=== PATIENT | female | born 1980 | race Caucasian/White ===

== ENCOUNTER 2024-12-03 23:16 | Emergency (ER) | payer OTHER ==
--- NOTE | 2024-12-03 23:50 | ER ---
Nurse's Notes [facility] Name: Erma Mejia Age: 44 yrs Sex: Female : 1980 Arrival Date: 12/03/2024 Time: 23:16 Bed IW1 Private MD: Diagnosis: Odontogenic abscess Presentation: 12/03 23:44 Chief complaint: Patient states: I have some swelling to left side of my face. bm8 Coronavirus screen: At this time, the client does not indicate any symptoms associated with coronavirus-19. Ebola Screen: Patient negative for fever greater than or equal to 101.5 degrees Fahrenheit, and additional compatible Ebola Virus Disease symptoms Patient denies exposure to infectious person. Patient denies travel to an Ebola-affected area in the 21 days before illness onset. No symptoms or risks identified at this time. Initial Sepsis Screen: Does the patient meet any 2 criteria? No. Patient's initial sepsis screen is negative. Does the patient have a suspected source of infection? No. Patient's initial sepsis screen is negative. Risk Assessment: Do you want to hurt yourself or someone else? Patient reports no desire to harm self or others. Onset of symptoms was November 28, 2024. 23:44 Method Of Arrival: Ambulatory bm8 23:44 Acuity: MYRA 4 bm8 Triage Assessment: 23:46 General: Appears in no apparent distress. uncomfortable, Behavior is calm, cooperative, bm8 appropriate for age. Pain: Complains of pain in left jaw and left cheek Pain currently is 9 out of 10 on a pain scale. EENT: Poor dentition noted. Absence of teeth noted - lower left second molar (#18), lower left first molar (#19) and lower left second bicuspid (#20). Neuro: No deficits noted. Level of Consciousness is awake, alert, obeys commands, Oriented to person, place, time, situation, Appropriate for age. Cardiovascular: Denies chest pain, Heart tones S1 S2 present. Respiratory: Airway is patent Respiratory effort is even, unlabored, Respiratory pattern is regular, symmetrical. GI: No signs and/or symptoms were reported involving the gastrointestinal system. : No signs and/or symptoms were reported regarding the genitourinary system. Derm: Abscess located on left jaw and left cheek is golf ball sized, Reports pain that is 9 out of 10 on a pain scale. Musculoskeletal: No deficits noted. No signs and/or symptoms reported regarding the musculoskeletal system. 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 - Infectious Disease History:: Denies. - Social history:: Smoking status: Patient denies any tobacco usage or history of. Screenin/07 00:06 [facility] ED Fall Risk Assessment (Adult) History of falling in the last 3 months, bm8 including since admission No falls in past 3 months (0 pts) Confusion or Disorientation No (0 pts) Intoxicated or Sedated No (0 pts) Impaired Gait No (0 pts) Mobility Assist Device Used No (0 pt) Altered Elimination No (0 pt) Score/Fall Risk Level 0 - 2 = Low Risk Oriented to surroundings, Maintained a safe environment, Educated pt \T\ family on fall prevention, incl call for assistance when getting out of bed, Assessed \T\ reinforced patient's understanding of fall precautions, Hourly rounding (assess needs \T\ fall precautionary measures) done, Used ambulatory aids as needed (educated on \T\ assisted with), Used gait belt as appropriate. Abuse screen: Denies threats or abuse. Nutritional screening: No deficits noted. Tuberculosis screening: No symptoms or risk factors identified. Assessment: 00:06 Reassessment: see triage note. bm8 Vital Signs: 12/03 23:44 BP 175 / 93; Pulse 69; Resp 18; Temp 98.5; Pulse Ox 100% ; Weight 86.18 kg; Height 5 bm8 ft. 4 in. ; Pain 9/10; 23:44 Body Mass Index 32.61 (86.18 kg, 162.56 cm) bm8 23:44 Pain Scale: Adult bm8 Toan Coma Score: 12/04 00:06 Eye Response: spontaneous(4). Motor Response: obeys commands(6). Verbal Response: bm8 oriented(5). Total: 15. ED Course: 12/03 23:19 Patient arrived in ED. jj6 23:34 Owen Cotto FNP-C is PHCP. dr5 23:34 Hector Partida MD is Attending Physician. dr5 23:46 Triage completed. bm8 23:46 Arm band placed on right wrist. bm8 12/04 00:06 Patient has correct armband on for positive identification. Provided Education on: post bm8 er care. 00:06 No provider procedures requiring assistance completed. Patient did not have IV access bm8 during this emergency room visit. Administered Medications: 00:06 Drug: Ketorolac IM 30 mg IM once Route: IM; Site: right deltoid; bm8 00:08 Follow up: Response: No adverse reaction bm8 00:06 Drug: Amoxicillin-Clavulanate PO 875 mg PO once Route: PO; bm8 00:08 Follow up: Response: No adverse reaction bm8 Medication: 00:06 VIS not applicable for this client. bm8 Outcome: 12/03 23:49 Discharge ordered by . rt 12/04 00:06 Discharged to home ambulatory, with family, bm8 Condition: stable Discharge instructions given to patient, family, Instructed on discharge instructions, follow up and referral plans. safety practices, Demonstrated understanding of instructions, follow-up care, medications, Prescriptions given X 2, 00:08 Patient left the ED. bm8 Signatures: Radha Quinteros [email or web address] Hector Partida MD MD rt John Bradley RN RN bm8 Owen Cotto FNP-C FNP-Cdr5 Corrections: (The following items were deleted from the chart) 12/03 23:46 23:46 PMHx: None; bm8 bm8 23:46 23:46 PSHx: Unable to Obtain; bm8 bm8 12/04 00:08 00:06 Discharge instructions given to patient, family, Instructed on discharge bm8 instructions, follow up and referral plans. safety practices, Demonstrated understanding of instructions, follow-up care, medications, Prescriptions given X 1, bm8
--- NOTE | 2024-12-03 23:50 | EDPHYS ---
Physician Documentation [facility] Name: Erma Mejia Age: 44 yrs Sex: Female : 1980 Arrival Date: 12/03/2024 Time: 23:16 Bed IW1 Private MD: ED Physician Hector Partida HPI: 12/04 01:41 This 44 yrs old Female presents to ER via Ambulatory with complaints of Abscess. rt 01:41 Patient presents to the ED with reported dental abscess to the left lower jaw. Has been rt present for about a week. Has been unable to get in with a dentist. States that symptoms have worsened today. Denies other acute complaints at this time, symptoms are mild severity, no other aggravating elevating factors.. 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 - Infectious Disease History:: Denies. - Social history:: Smoking status: Patient denies any tobacco usage or history of. ROS: 12/04 01:41 Constitutional: Negative for fever, chills, and weight loss, Cardiovascular: Negative rt for chest pain, palpitations, and edema, Respiratory: Negative for shortness of breath, cough, wheezing, and pleuritic chest pain, Abdomen/GI: Negative for abdominal pain, nausea, vomiting, diarrhea, and constipation, ENT: Positive for Dental pain, abscess, Exam: 01:41 Constitutional: This is a well developed, well nourished patient who is awake, alert, rt and in no acute distress. Head/Face: Normocephalic, atraumatic. Chest/axilla: Normal chest wall appearance and motion. Nontender with no deformity. No lesions are appreciated. Cardiovascular: Regular rate and rhythm with a normal S1 and S2. No gallops, murmurs, or rubs. Normal PMI, no JVD. No pulse deficits. Respiratory: Lungs have equal breath sounds bilaterally, clear to auscultation and percussion. No rales, rhonchi or wheezes noted. No increased work of breathing, no retractions or nasal flaring. Abdomen/GI: Soft, non-tender, with normal bowel sounds. No distension or tympany. No guarding or rebound. No evidence of tenderness throughout. 01:41 ENT: Multiple dental caries noted, swelling noted to the left lower mandibular region consistent with abscess versus lymphadenopathy, no head amenable to drainage. Vital Signs: 12/03 23:44 BP 175 / 93; Pulse 69; Resp 18; Temp 98.5; Pulse Ox 100% ; Weight 86.18 kg; Height 5 bm8 ft. 4 in. ; Pain 9/10; 23:44 Body Mass Index 32.61 (86.18 kg, 162.56 cm) bm8 23:44 Pain Scale: Adult bm8 Toan Coma Score: 12/04 00:06 Eye Response: spontaneous(4). Motor Response: obeys commands(6). Verbal Response: bm8 oriented(5). Total: 15. MDM: 12/03 23:38 Medical Screening Exam initiated dr5 12/04 01:41 Differential diagnosis: Dental caries, dental abscess. Data reviewed: vital signs, rt nurses notes. Test considered but Not performed: Other Details Stable vital signs save for hypertension. Patient has swelling, lymphadenopathy versus abscess. It is not amenable to primary drainage in the emergency department. CT scan was considered, however, CT scan is not available at this time at this facility and do not believe that is emergently indicated, will start trial of outpatient antibiotics, return precautions were discussed as well as outpatient follow-up with dentist.. Counseling: I had a detailed discussion with the patient and/or guardian regarding the historical points, exam findings, and any diagnostic results supporting the discharge/admit diagnosis, the need for outpatient follow up. Response to treatment: the patient's symptoms have mildly improved after treatment. Administered Medications: 00:06 Drug: Ketorolac IM 30 mg IM once Route: IM; Site: right deltoid; bm8 00:08 Follow up: Response: No adverse reaction bm8 00:06 Drug: Amoxicillin-Clavulanate PO 875 mg PO once Route: PO; bm8 00:08 Follow up: Response: No adverse reaction bm8 Disposition Summary: 12/03/24 23:49 Discharge Ordered Notes: Location: Home rt Problem: new rt Symptoms: are unchanged rt Condition: Stable rt Diagnosis - Odontogenic abscess rt Followup: rt - With: Private Physician - When: 2 - 3 days - Reason: Discharge Instructions: - Discharge Summary Sheet rt - Dental Abscess rt Forms: - Medication Reconciliation Form rt - Antibiotic Education rt - Prescription Opioid Use rt - Patient Portal Instructions rt - Leadership Thank You Letter rt Prescriptions: - Augmentin 875-125 mg Oral Tablet - take 1 tablet ORAL route every 12 hours for 10 days; 20 tablet; Refills: 0, rt Product Selection Permitted - Tramadol 50 mg Oral Tablet - take 1 tablet ORAL route every 8 hours as needed; 12 tablet; Refills: 0, rt Product Selection Permitted Signatures: Hector Partida MD MD rt John Bradley, RN RN bm8 Owen Cotto, DIABETES TRAINER-C DIABETES TRAINER-Cdr5 Corrections: (The following items were deleted from the chart) 12/03 23:46 23:46 PMHx: None; bm8 bm8 23:46 23:46 PSHx: Unable to Obtain; bm8 bm8
[2024-12-04] MEDS ORDERED: AMOX/K CLAV 875 MG TAB ONE
[2024-12-04] MEDS ORDERED: KETOROLAC 30 MG/ML INJ ONE
[2024-12-04 00:26] VITALS: BP 175/93; TEMP 98.5; O2SAT 100
== END 2024-12-04 00:08 | disposition home or self-care (01) ==
LOC: ER 23:16
DX: K04.7 Periapical abscess without sinus (principal)
CPT/HCPCS: 96372; 99284

== ENCOUNTER 2024-12-06 00:30 | Emergency (ER) | payer OTHER ==
[2024-12-06] MEDS ORDERED: CEFTRIAXONE 1000 MG/VIAL ONE (01:20)
[2024-12-06] MEDS ORDERED: HYDROCODONE/APAP 5/325 MG TAB ONE (01:21)
[2024-12-06] MEDS ORDERED: ONDANSETRON 4 MG/2 ML VIAL ONE (01:21)
[2024-12-06] MEDS ORDERED: NA CHLORIDE 0.9% 1,000 ML ONE (01:21)
[2024-12-06] MEDS ORDERED: KETOROLAC 30 MG/ML INJ ONE (01:21)
[2024-12-06 02:03] LABS: Absolute Eosinophils 0.1 K/uL (0-0.5); Absolute Lymphocytes (CBC) 2.6 K/uL (0.7-4.9); Absolute Monocytes 0.6 K/uL (0.1-1.3); Absolute Neutrophil 8.9 K/uL (1.8-8.0); Basophils % 0.3 % (0-1.3); Eosinophils % 1.2 % (0-4.4); Hematocrit 39.5 % (36.0-45.0); Hemoglobin 13.3 g/dL (12.0-15.0); Lymphocytes % 21.4 % (15.3-44.8); MCH 28.7 pg (27.0-35.0); MCHC 33.5 g/dL (32.0-36.0); MCV 85.6 fL (80-100); MPV 6.9 fL (7.6-11.3); Monocytes % 5.2 % (3.3-12.3); Neutrophils % 71.9 % (41.7-73.7); Platelets 447 thou/uL (152-406); RBC Red Blood Cell Count 4.62 M/uL (3.86-4.86)
[2024-12-06 02:14] LABS: Albumin 3.4 g/dL (3.4-5.0); Anion Gap 9.2 mEq/L (5.0-15.0); Bilirubin Total 0.2 mg/dL (0.2-1.0); Globulin 3.5 g/dL (2.3-3.5); Potassium 3.2 mEq/L (3.5-5.1); Protein, Total 6.9 g/dL (6.4-8.2)
[2024-12-06] MEDS ORDERED: SMZ./TMP. 800/160 MG TABLET ONE (03:31)
[2024-12-06] MEDS ORDERED: LIDOCAINE 1% 20 ML MDV ONE (03:31)
--- NOTE | 2024-12-06 03:48 | RAD REPORT ---
EXAM: CT Neck With Intravenous Contrast CLINICAL HISTORY: left mandibular abscess TECHNIQUE: Axial computed tomography images of the neck with intravenous contrast. Sagittal and coronal reform atted images were created and reviewed. This CT exam was performed using one or more of the following dose reduction techniques: automated exposure control, adjustment of the mA and/or kV acc ording to patient size, and/or use of iterative reconstruction technique. COMPARISON: No relevant prior studies available. FINDINGS: Oropharynx: Unremarkable. No significant tonsillar enlargement. No peritonsillar abscess. Hypopharynx: Unremarkable. Larynx: Unremarkable. Normal epiglottis. Trachea: Unremarkable. Retropharyngeal space: Unremarkable. Submandibular/parotid glands: Unremarkable. Glands are normal in size. Thyroid: Unremarkable. No enlarged or calcified nodules. Bones/joints: No acute fracture. Soft tissues: Left perimandibular soft tissue swelling and mild platysmal thickening. There is a pe ripherally enhancing collection within the left perimandibular soft tissues measuring approximately 1.4 cm with a tract extending to the mandible at the level of the second premolar tooth. Vasculature: No acute findings. Lymph nodes: Unremarkable. No lymphadenopathy. Sinuses: Near-complete opacification of the bilateral maxillary sinuses. Dental: Scattered dental caries. Prominent periapical lucency with disruption of the buccal cortex at the level of the left mandibular second premolar tooth. Lung apices: Bilateral upper lobe groundglass opacities. IMPRESSION: 1. Left perimandibular soft tissue abscess measuring approximately 1.4 cm with a tract extending to the mandible at the level of the second premolar tooth. 2. Bilateral upper lobe groundglass opacities (atelectasis and/or infiltrate). 3. Other findings as above. Electronically signed by: Rachelle Lamb MD 12/06/2024 02:52 AM [facility] Due to temporary technical issues with the PACS/Z Plane reporting system, reports are being mahesh d by the in-house radiologist without review as a courtesy to ensure prompt reporting the interpreting radiologist is fully responsible for the content of the report. Transcribed Date/Time: 12/06/2024 3:47 AM
--- NOTE | 2024-12-06 04:21 | EDPHYS ---
Physician Documentation [facility] Name: Erma Mejia Age: 44 yrs Sex: Female : 1980 Arrival Date: 12/06/2024 Time: 00:30 Bed 6 Private MD: ED Physician Thien Goodson HPI: 12/06 00:42 This 44 yrs old Female presents to ER via Unassigned with complaints of sp4 Abscess Recheck, Facial Swelling. 12/07 00:58 Patient presents with worsening left lower facial swelling associated with forming sp4 abscess just left submandibular area.. 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 Flu vaccine is not up to date. Patient has never been vaccinated. - Infectious Disease History:: Denies. - Social history:: Smoking status: Patient/guardian denies using tobacco, but has a distant history of tobacco abuse. - Family history:: not pertinent. ROS: 12/07 00:58 Constitutional: Negative for fever, chills, and weight loss, positive left lower sp4 submandibular abscess abscess All other systems are negative, Exam: 00:58 Constitutional: This is a well developed, well nourished patient who is awake, alert, sp4 and in no acute distress. Head/Face: Normocephalic, atraumatic. Patient has left lower facial swelling associated with induration and purulence with forming pus had left submandibular area Eyes: Pupils equal round and reactive to light, extra-ocular motions intact. Lids and lashes normal. Conjunctiva and sclera are not injected. Cornea within normal limits. Periorbital areas with no swelling, redness, or edema. ENT: Nares patent. No nasal discharge, no septal abnormalities noted. Tympanic membranes are normal and external auditory canals are clear. Oropharynx with no redness, swelling, or masses, exudates, or evidence of obstruction, uvula midline. Mucous membranes moist. Neck: Trachea midline, no thyromegaly or masses palpated, and no cervical lymphadenopathy. Supple, full range of motion without nuchal rigidity, or vertebral point tenderness. Chest/axilla: Normal chest wall appearance and motion. Nontender with no deformity. No lesions are appreciated. Cardiovascular: Regular rate and rhythm with a normal S1 and S2. No gallops, murmurs, or rubs. Normal PMI, no JVD. No pulse deficits. Respiratory: Lungs have equal breath sounds bilaterally, clear to auscultation and percussion. No rales, rhonchi or wheezes noted. No increased work of breathing, no retractions or nasal flaring. Abdomen/GI: Soft, with normal bowel sounds. No distension or tympany. No guarding or rebound. No evidence of tenderness throughout. Back: No spinal tenderness. No costovertebral tenderness. Skin: Warm, dry with normal turgor. Normal color with no rashes, no lesions, and no evidence of cellulitis. MS/ Extremity: Pulses equal, no cyanosis. Neurovascular intact. Full, normal range of motion. Neuro: Awake and alert, GCS 15, oriented to person, place, time, and situation. Cranial nerves II-XII grossly intact. Motor strength 5/5 in all extremities. Sensory grossly intact. Psych: Awake, alert, with orientation to person, place and time. Behavior, mood, and affect are within normal limits Vital Signs: 12/06 00:35 BP 159 / 95; Pulse 84; Resp 16; Temp 97.9(TE); Pulse Ox 98% ; Weight 111.58 kg; Height dd2 5 ft. 6 in. ; Pain 6/10; 01:00 BP 152 / 93; Pulse 83; Resp 16; Pulse Ox 99% on R/A; ay 02:15 BP 149 / 88; Pulse 85; Resp 16; Pulse Ox 99% on R/A; ay 03:00 BP 152 / 87; Pulse 83; Resp 17; Pulse Ox 99% on R/A; ay 04:15 BP 146 / 85; Pulse 86; Resp 16; Temp 98.3; Pulse Ox 98% on R/A; ay 00:35 Body Mass Index 39.70 (111.58 kg, 167.64 cm) dd2 00:35 Pain Scale: Adult dd2 Burdine Coma Score: 12/07 00:58 Eye Response: spontaneous(4). Motor Response: obeys commands(6). Verbal Response: sp4 oriented(5). Total: 15. Procedures: 12/06 04:03 I \T\ D: Incision and drainage was performed for an abscess of the left neck - Left sp4 submandibular area small abscess Prepped with Betadine, alcohol, Anesthetized with 8 ml's 1% Lidocaine. Incised with #11 blade. Drained moderate amount purulent fluid. bloody fluid. Packed with iodoform gauze, Dressing: sterile 4x4 gauze, Foam Tape the patient tolerated the procedure well, Advised Daily dressing changes . MDM: 00:58 Medical Screening Exam initiated sp4 12/07 01:00 Differential diagnosis: cellulitis. Data reviewed: vital signs, nurses notes, lab test sp4 result(s), radiologic studies, CT scan. ED course: EXAM: CT Neck With Intravenous Contrast CLINICAL HISTORY: left mandibular abscess TECHNIQUE: Axial computed tomography images of the neck with intravenous contrast. Sagittal and coronal reformatted images were created and reviewed. This CT exam was performed using one or more of the following dose reduction techniques: automated exposure control, adjustment of the mA and/or kV according to patient size, and/or use of iterative reconstruction technique. COMPARISON: No relevant prior studies available. FINDINGS: Oropharynx: Unremarkable. No significant tonsillar enlargement. No peritonsillar abscess. Hypopharynx: Unremarkable. Larynx: Unremarkable. Normal epiglottis. Trachea: Unremarkable. Retropharyngeal space: Unremarkable. Submandibular/parotid glands: Unremarkable. Glands are normal in size. Thyroid: Unremarkable. No enlarged or calcified nodules. Bones/joints: No acute fracture. Soft tissues: Left perimandibular soft tissue swelling and mild platysmal thickening. There is a peripherally enhancing collection within the left perimandibular soft tissues measuring approximately 1.4 cm with a tract extending to the mandible at the level of the second premolar tooth. Vasculature: No acute findings. Lymph nodes: Unremarkable. No lymphadenopathy. Sinuses: Near-complete opacification of the bilateral maxillary sinuses. Dental: Scattered dental caries. Prominent periapical lucency with disruption of the buccal cortex at the level of the left mandibular second premolar tooth. Lung apices: Bilateral upper lobe groundglass opacities. IMPRESSION: 1. Left perimandibular soft tissue abscess measuring approximately 1.4 cm with a tract extending to the mandible at the level of the second premolar tooth. 2. Bilateral upper lobe groundglass opacities (atelectasis and/or infiltrate). 3. Other findings as above. Electronically signed by: Rachelle Lamb MD 12/06/2024 02:52 AM. 12/06 00:56 Order name: CBC with Diff; Complete Time: 02:10 sp4 12/06 00:56 Order name: CMP; Complete Time: 03:03 sp4 12/06 00:57 Order name: CT Soft Tissue Neck W/contr sp4 12/06 00:56 Order name: IV Saline Lock; Complete Time: 01:01 sp4 12/06 00:56 Order name: Labs collected and sent; Complete Time: 01:01 sp4 12/06 03:03 Order name: Dressing - Wound; Complete Time: 04:23 sp4 12/06 03:03 Order name: Gloves, Sterile; Complete Time: 03:34 sp4 12/06 03:03 Order name: Setup Suture Tray; Complete Time: 03:34 sp4 Administered Medications: 12/06 01:37 Drug: HYDROcodone-acetaminophen PO 5 mg-325 mg 2 tabs PO once Route: PO; dd2 02:07 Follow up: Response: No adverse reaction ay 01:37 Drug: Ketorolac IVP 30 mg IVP once Route: IVP; Site: left antecubital; dd2 01:52 Follow up: Response: No adverse reaction ay 01:37 Drug: Ondansetron IVP 4 mg IVP once; over 2 minutes Route: IVP; Site: left antecubital; dd2 01:52 Follow up: Response: No adverse reaction ay 01:37 Drug: Rocephin IV 1 grams IV at calculated rate once; Given slow IV push per pharmacy dd2 instructions Route: IV; Rate: calculated rate; Site: left antecubital; 01:52 Follow up: Response: No adverse reaction; IV Status: Completed infusion; IV Intake: 10mlay 01:37 Drug: NS 0.9% IV 1000 ml IV at 1 bolus Per protocol; to be given as a bolus over 60 dd2 minutes Route: IV; Rate: 1 bolus; Site: left antecubital; 01:52 Follow up: Response: No adverse reaction ay 02:37 Follow up: IV Status: Completed infusion; IV Intake: 1000ml ay 03:34 Drug: Trimethoprim-Sulfamethoxazole PO (160 mg-800 mg (DS) 1 tablet PO once Route: PO; ay 04:04 Follow up: Response: No adverse reaction ay 04:00 Drug: Lidocaine Infiltration (1 %) 20 ml 20 ml Infiltration once; to bedside {Note: ay administered by dr. pena} Volume: 20 ml; Route: Infiltration; Site: affected area; 04:15 Follow up: Response: No adverse reaction ay Disposition Summary: 12/06/24 04:20 Discharge Ordered Notes: Location: Home sp4 Problem: new sp4 Symptoms: have improved sp4 Condition: Stable sp4 Diagnosis - Acute abscess Left submandibular area, Moderate Dental Decay Tooth # 19, 20 sp4 Followup: sp4 - With: Christ Chatterjee DDS - When: 7 - 10 days - Reason: Recheck today's complaints Discharge Instructions: - Discharge Summary Sheet sp4 - Skin Abscess, [id number] sp4 Forms: - Patient Portal Instructions sp4 Prescriptions: - acetaminophen-codeine 300-60 mg Oral tablet - take 1 tablet ORAL route every 8 hours PRN pain; 20 tablet; Refills: 0, Product sp4 Selection Permitted - Ibuprofen 800 mg Oral Tablet - take 1 tablet ORAL route every 8 hours As needed take with food; 30 tablet; sp4 Refills: 0, Product Selection Permitted - Bactrim DS 800-160 mg Oral Tablet - take 1 tablet ORAL route every 12 hours for 10 days; 20 tablet; Refills: 0, sp4 Product Selection Permitted Signatures: Dispatcher [employer] EDThien Stoddard MD MD sp4 TAMELA CHEN RN RN dd2 Matt Kearns RN RN ay Corrections: (The following items were deleted from the chart) 00:57 00:57 CBC+H.LAB.BRZ ordered. EDMS EDMS 00:57 00:57 COMPREHENSIVE METABOLIC PANEL+C.LAB.BRZ ordered. EDMS EDMS
--- NOTE | 2024-12-06 04:21 | ER ---
Nurse's Notes [facility] Name: Erma Mejia Age: 44 yrs Sex: Female : 1980 Arrival Date: 12/06/2024 Time: 00:30 Bed 6 Private MD: Diagnosis: Acute abscess Left submandibular area, Moderate Dental Decay Tooth # 19, 20 Presentation: 12/06 00:35 Chief complaint: Patient states: WAS HERE ON TUESDAY FOR SWELLING TO [place] AND dd2 BEGAN TO HAVE RED RAISED BUMP BELOW THE SWELLING TONIGHT. PT REPORTS PAIN AND BURNING. Coronavirus screen: At this time, the client does not indicate any symptoms associated with coronavirus-19. Ebola Screen: No symptoms or risks identified at this time. Initial Sepsis Screen: Does the patient meet any 2 criteria? No. Patient's initial sepsis screen is negative. Does the patient have a suspected source of infection? No. Patient's initial sepsis screen is negative. Risk Assessment: Do you want to hurt yourself or someone else? Patient reports no desire to harm self or others. Onset of symptoms is unknown. 00:35 Method Of Arrival: Ambulatory dd2 00:35 Acuity: MYRA 4 dd2 Triage Assessment: 00:35 General: Appears in no apparent distress. uncomfortable, Behavior is calm, cooperative, dd2 appropriate for age. Pain: Complains of pain in chin and left jaw Pain does not radiate. Pain currently is 6 out of 10 on a pain scale. Quality of pain is described as burning, shooting. EENT: No deficits noted. No signs and/or symptoms were reported regarding the EENT system. Neuro: No deficits noted. Dixon Agitation-Sedation Scale (RASS): 0 - Alert and Calm Level of Consciousness is awake, alert, obeys commands, Oriented to person, place, time, situation, Appropriate for age. Cardiovascular: No deficits noted. Patient's skin is warm and dry. Respiratory: No deficits noted. Airway is patent Respiratory effort is even, unlabored, Respiratory pattern is regular, symmetrical. GI: No deficits noted. No signs and/or symptoms were reported involving the gastrointestinal system. : No deficits noted. No signs and/or symptoms were reported regarding the genitourinary system. Derm: Abscess located on left jaw is red, is raised, Reports burning, pain that is 6 out of 10 on a pain scale. Musculoskeletal: No deficits noted. No signs and/or symptoms reported regarding the musculoskeletal system. Circulation, motion, and sensation intact. Range of motion: intact in all extremities. FIT MODEL: 00:35 LMP 12/04/2024, unknown dd2 Historical: - Allergies: 00:42 No Known Allergies; dd2 - PMHx: 00:42 HTN; Asthma; dd2 - PSHx: 00:42 Cholecystectomy; dd2 - Immunization history:: Adult Immunizations not immunized, Client reports having NOT received the Covid vaccine. Flu vaccine is not up to date. Patient has never been vaccinated. - Infectious Disease History:: Denies. - Social history:: Smoking status: Patient/guardian denies using tobacco, but has a distant history of tobacco abuse. - Family history:: not pertinent. Screenin:51 [facility] ED Fall Risk Assessment (Adult) History of falling in the last 3 months, dd2 including since admission No falls in past 3 months (0 pts) Confusion or Disorientation No (0 pts) Intoxicated or Sedated No (0 pts) Impaired Gait No (0 pts) Mobility Assist Device Used No (0 pt) Altered Elimination No (0 pt) Score/Fall Risk Level 0 - 2 = Low Risk Oriented to surroundings, Maintained a safe environment, Educated pt \T\ family on fall prevention, incl call for assistance when getting out of bed, Assessed \T\ reinforced patient's understanding of fall precautions, Hourly rounding (assess needs \T\ fall precautionary measures) done. Abuse screen: Denies threats or abuse. Nutritional screening: No deficits noted. Tuberculosis screening: No symptoms or risk factors identified. Assessment: 00:47 Reassessment: SEE TRIAGE ASSESSMENT FOR FULL ASSESSMENT. dd2 Vital Signs: 00:35 BP 159 / 95; Pulse 84; Resp 16; Temp 97.9(TE); Pulse Ox 98% ; Weight 111.58 kg; Height dd2 5 ft. 6 in. ; Pain 6/10; 01:00 BP 152 / 93; Pulse 83; Resp 16; Pulse Ox 99% on R/A; ay 02:15 BP 149 / 88; Pulse 85; Resp 16; Pulse Ox 99% on R/A; ay 03:00 BP 152 / 87; Pulse 83; Resp 17; Pulse Ox 99% on R/A; ay 04:15 BP 146 / 85; Pulse 86; Resp 16; Temp 98.3; Pulse Ox 98% on R/A; ay 00:35 Body Mass Index 39.70 (111.58 kg, 167.64 cm) dd2 00:35 Pain Scale: Adult dd2 [place] Coma Score: 12/07 00:58 Eye Response: spontaneous(4). Motor Response: obeys commands(6). Verbal Response: sp4 oriented(5). Total: 15. ED Course: 12/06 00:33 Patient arrived in ED. gm2 00:35 Arm band placed on right wrist. Patient placed in an exam room, on a stretcher, on dd2 pulse oximetry. 00:42 Thien Goodson MD is Attending Physician. sp4 00:42 Triage completed. dd2 00:49 TAMELA CHEN, RN is Primary Nurse. dd2 00:51 Patient has correct armband on for positive identification. Bed in low position. Call dd2 light in reach. Client placed on continuous cardiac and pulse oximetry monitoring. NIBP monitoring applied. Door closed. Noise minimized. Verbal reassurance given. 00:51 Patient maintains SpO2 saturation greater than 95% on room air. dd2 01:02 Radiology exam delayed due to IV insertion attempt and/or patient not having jc4 appropriate IV at this time. 01:23 Inserted saline lock: 20 gauge in right antecubital area, using aseptic technique. vk Blood collected. Flushed with 10 mL NS. 01:23 CBC with Diff Sent. vk 01:23 CMP Sent. vk 02:14 CT Soft Tissue Neck W/contr In Process Unspecified. EDMS 04:19 Sweta Bridges MD is Referral Physician. sp4 04:19 Christ Chatterjee DDS is Referral Physician. sp4 04:48 Provided Education on: D/C EDUCATION. ay 04:48 Assist provider with I \T\ D: of an abscess on left CHIN Set up I\T\D tray. Performed by sabrina Goodson MD Wound packed. iodoform gauze, Dressing with 4X4s, tape Patient tolerated well. IV discontinued, intact, bleeding controlled, No redness/swelling at site. Pressure dressing applied. Administered Medications: 01:37 Drug: HYDROcodone-acetaminophen PO 5 mg-325 mg 2 tabs PO once Route: PO; dd2 02:07 Follow up: Response: No adverse reaction ay 01:37 Drug: Ketorolac IVP 30 mg IVP once Route: IVP; Site: left antecubital; dd2 01:52 Follow up: Response: No adverse reaction ay 01:37 Drug: Ondansetron IVP 4 mg IVP once; over 2 minutes Route: IVP; Site: left antecubital; dd2 01:52 Follow up: Response: No adverse reaction ay 01:37 Drug: Rocephin IV 1 grams IV at calculated rate once; Given slow IV push per pharmacy dd2 instructions Route: IV; Rate: calculated rate; Site: left antecubital; 01:52 Follow up: Response: No adverse reaction; IV Status: Completed infusion; IV Intake: 10mlay 01:37 Drug: NS 0.9% IV 1000 ml IV at 1 bolus Per protocol; to be given as a bolus over 60 dd2 minutes Route: IV; Rate: 1 bolus; Site: left antecubital; :52 Follow up: Response: No adverse reaction ay 02:37 Follow up: IV Status: Completed infusion; IV Intake: 1000ml ay 03:34 Drug: Trimethoprim-Sulfamethoxazole PO (160 mg-800 mg (DS) 1 tablet PO once Route: PO; ay 04:04 Follow up: Response: No adverse reaction ay 04:00 Drug: Lidocaine Infiltration (1 %) 20 ml 20 ml Infiltration once; to bedside {Note: ay administered by dr. pena} Volume: 20 ml; Route: Infiltration; Site: affected area; 04:15 Follow up: Response: No adverse reaction ay Medication: 00:51 VIS not applicable for this client. dd2 Intake: 01:52 IV: 10ml; Total: 10ml. ay 02:37 IV: 1000ml; Total: 1010ml. ay Outcome: 04:20 Discharge ordered by MD. burris 04:48 Discharged to home ambulatory, ay 04:48 Condition: stable 04:48 Discharge instructions given to patient, family, Instructed on discharge instructions, follow up and referral plans. medication usage, Demonstrated understanding of instructions, follow-up care, medications, Prescriptions given X 2, 04:50 Patient left the ED. ay Signatures: Dispatcher [employer] EDMS Thien Goodson MD MD sp4 Nalini Mascorro gm2 Kasandra Marinelli Justin jc4 TAMELA CHEN RN RN dd2 Matt Kearns RN RN ay Corrections: (The following items were deleted from the chart) 00:43 00:35 Pulse 84bpm; Resp 16bpm; Pulse Ox 98%; Temp 97.9F Temporal; 111.58 kg; Height 5 dd2 ft. 6 in.; BMI: 39.7; Pain 6/10, Adult; dd2
[2024-12-06 05:19] VITALS: BP 146/85; TEMP 98.3; O2SAT 98
== END 2024-12-06 04:50 | disposition home or self-care (01) ==
LOC: ER 00:30
PROC: 0H94XZZ Drainage of Neck Skin, External Approach (ICD-10-PCS; principal; 2024-12-06)
DX: L02.11 Cutaneous abscess of neck (principal); K02.9 Dental caries, unspecified
CPT/HCPCS: 96361; 85025; 36415; 80053; 70491; 96375; 96374; 99285; 10060; Q9967; J2003; J2405; J7030; J0696

== ENCOUNTER 2025-04-16 23:44 | Emergency (ER) | payer OTHER ==
[2025-04-17] MEDS ORDERED: IPRATROPIUM BROM 0.5MG/2.5ML ONE (00:02)
[2025-04-17] MEDS ORDERED: ALBUTEROL 2.5 MG/3 ML NEB SOL ONE (00:02)
[2025-04-17] MEDS ORDERED: dexAMETHasone 10 MG/ML VIAL ONE (00:03)
[2025-04-17 00:40] LABS: SARS-CoV-2 Antigen Rapid Res Negative (Negative)
--- NOTE | 2025-04-17 01:02 | EDPHYS ---
Physician Documentation [facility] Name: Erma Mejia Age: 45 yrs Sex: Female : 1980 Arrival Date: 04/16/2025 Time: 23:44 Bed 18 Private MD: ED Physician Thien Goodson HPI: 04/16 23:57 This 45 yrs old Female presents to ER via Unassigned with complaints of Shortness Of kb Breath, Cough, Chest Congestion. 23:57 Patient is a 45-year-old female who presents for cough, congestion, shortness of kb breath, fever, fatigue that started on Tuesday and is progressively gotten worse. States she has a history of asthma and pneumonia. States she feels like she did the last 2 time she had pneumonia.. THERAPY DIRECTOR: 23:56 LMP N/A - , Not rg5 Historical: - Allergies: 23:56 No Known Allergies; rg5 - PMHx: 23:56 Asthma; HTN; rg5 - PSHx: 23:56 Cholecystectomy; rg5 - Immunization history:: Adult Immunizations not up to date. - Infectious Disease History:: Denies. - Social history:: Smoking status: unknown. ROS: 23:56 Constitutional: As per HPI kb Exam: 23:56 Constitutional: This is a well developed, well nourished patient who is awake, alert, kb and in no acute distress. Head/Face: Normocephalic, atraumatic. ENT: Moist Mucous membranes Cardiovascular: Regular rate Skin: Warm, dry with normal turgor. Normal color. MS/ Extremity: Pulses equal, no cyanosis. Neurovascular intact. Full, normal range of motion. Neuro: Awake and alert, GCS 15, oriented to person, place, time, and situation. 23:56 Respiratory: the patient does not display signs of respiratory distress, Respirations: normal, Breath sounds: rhonchi, that are mild, are heard in the right lower lobe and right posterior lower lobe, Vital Signs: 23:56 BP 131 / 74; Pulse 78; Resp 19; Temp 98.9; Pulse Ox 100% ; Weight 112.49 kg; Height 5 rg5 ft. 6 in. ; 04/17 00:56 BP 113 / 64; Pulse 80; Resp 18; Pulse Ox 100% ; rg5 04/16 23:56 Body Mass Index 40.03 (112.49 kg, 167.64 cm) rg5 MDM: 04/16 23:51 Medical Screening Exam initiated kb 23:57 Data reviewed: vital signs, nurses notes. Historians other than the Patient: clark Spouse/Significant Other: spouse. 04/17 01:00 Differential diagnosis: Pneumonia, asthma exacerbation, COVID, flu, strep, URI, kb bronchitis. Consideration of Admission/Observation Escalation of care including admission/observation considered. Admission considered for pneumonia but patient is nontoxic in appearance, oxygen saturation 96 to 98% on room air. Discussed admission versus discharge with oral antibiotics with patient. Patient states she has done oral antibiotics in the past for pneumonia and would like to try that at this time. Patient given strict return precautions.. Independent interpretation of the following test(s) in the Emergency Department X-Ray: My interpretation is Pneumonia in right lung. Counseling: I had a detailed discussion with the patient and/or guardian regarding the historical points, exam findings, and any diagnostic results supporting the discharge/admit diagnosis, lab results, radiology results, the need for outpatient follow up, a family practitioner, to return to the emergency department if symptoms worsen or persist or if there are any questions or concerns that arise at home. 04/16 23:56 Order name: SARS-COV-2 Antigen Rapid; Complete Time: 00:41 kb 04/16 23:56 Order name: Group A Streptococcus Rapid; Complete Time: 00:41 kb 04/17 00:43 Order name: Throat Culture [facility] 04/16 23:56 Order name: Chest Single View XRAY Administered Medications: 00:14 Drug: Albuterol Inhalation 2.5 mg Inhalation once Route: Inhalation; rg5 00:14 Drug: Ipratropium Inhalation Aerosol 0.5 mg Inhalation once Route: Inhalation; rg5 00:14 Drug: Dexamethasone IM 10 mg IM once Route: IM; Site: right deltoid; rg5 01:15 Follow up: Response: No adverse reaction rg5 01:05 Drug: Amoxicillin-Clavulanate PO 875 mg PO once Route: PO; rg5 01:15 Follow up: Response: No adverse reaction rg5 01:05 Drug: AZITHromycin PO 500 mg PO once Route: PO; rg5 01:14 Follow up: Response: No adverse reaction rg5 Disposition: 20:21 Co-signature as Attending Physician, Thien Goodson MD I agree with the assessment sp4 and plan of care. I reviewed the patient's care provided by the Advanced Practice Provider and agree with the diagnosis and treatment plan. Disposition Summary: 04/17/25 01:02 Discharge Ordered Notes: Location: Home kb Condition: Stable kb Diagnosis - Pneumonia, unspecified organism kb Followup: kb - With: Emergency Department - When: As needed - Reason: Worsening of condition Followup: kb - With: Private Physician - When: 2 - 3 days - Reason: Recheck today's complaints, Continuance of care, Re-evaluation by your physician Discharge Instructions: - Discharge Summary Sheet kb - Community-Acquired Pneumonia, Adult, [id number] kb Forms: - Medication Reconciliation Form kb - Antibiotic Education kb - Prescription Opioid Use kb - Patient Portal Instructions kb - Leadership Thank You Letter kb - Work release form br2 Prescriptions: - Augmentin 875-125 mg Oral tablet - take 1 tablet ORAL route every 12 hours for 10 days; 19 tablet; Refills: 0, kb Product Selection Permitted - Prednisone 20 mg Oral Tablet - take 1 tablet ORAL route once daily for 5 days; 5 tablet; Refills: 0, Product kb Selection Permitted - Zithromax 500 mg Oral tablet - take 1 tablet ORAL route once daily for 5 days; 4 tablet; Refills: 0, Product kb Selection Permitted Signatures: Dispatcher [employer] Ellen Stover, JOINERY PATTERNMAKER-C JOINERY PATTERNMAKER-Thien Yu MD MD sp4 Kirit Bruner RN RN rg5
--- NOTE | 2025-04-17 01:02 | ER ---
Nurse's Notes [facility] Name: Erma Mejia Age: 45 yrs Sex: Female : 1980 Arrival Date: 04/16/2025 Time: 23:44 Bed 18 Private MD: Diagnosis: Pneumonia, unspecified organism Presentation: 04/16 23:51 Chief complaint: Patient states: having shortness of breath, cough \T\ wheezing since rg5 tuesday. 23:51 Coronavirus screen: Client denies travel out of the [place] in the last 14 days. Ebola rg5 Screen: Patient negative for fever greater than or equal to 101.5 degrees Fahrenheit, and additional compatible Ebola Virus Disease symptoms Patient denies exposure to infectious person. Initial Sepsis Screen: Does the patient meet any 2 criteria? No. Patient's initial sepsis screen is negative. Does the patient have a suspected source of infection? No. Patient's initial sepsis screen is negative. Risk Assessment: Do you want to hurt yourself or someone else? Patient reports no desire to harm self or others. Onset of symptoms was February 11, 2025. 23:51 Method Of Arrival: Ambulatory rg5 23:51 Acuity: MYRA 4 rg5 Triage Assessment: 23:56 General: Appears in no apparent distress. Behavior is calm, cooperative, appropriate rg5 for age. Pain: Denies pain. EENT: Reports nasal congestion. Neuro: Level of Consciousness is awake, alert, obeys commands, Oriented to person, place, time, situation. Cardiovascular: Patient's skin is warm and dry. Respiratory: Reports shortness of breath cough that is productive, Onset: The symptoms/episode began/occurred gradually, the patient has mild shortness of breath. GI: Abdomen is round obese. : No signs and/or symptoms were reported regarding the genitourinary system. Derm: Skin is intact, Skin is dry, Skin is normal, Skin temperature is warm. Musculoskeletal: Circulation, motion, and sensation intact. Range of motion: intact in all extremities. GRIT BLASTER: 23:56 LMP N/A - , Not rg5 Historical: - Allergies: 23:56 No Known Allergies; rg5 - PMHx: 23:56 Asthma; HTN; rg5 - PSHx: 23:56 Cholecystectomy; rg5 - Immunization history:: Adult Immunizations not up to date. - Infectious Disease History:: Denies. - Social history:: Smoking status: unknown. Screenin/21 00:53 [facility] ED Fall Risk Assessment (Adult) History of falling in the last 3 months, rg5 including since admission No falls in past 3 months (0 pts) Confusion or Disorientation No (0 pts) Intoxicated or Sedated No (0 pts) Impaired Gait No (0 pts) Mobility Assist Device Used No (0 pt) Altered Elimination No (0 pt) Score/Fall Risk Level 0 - 2 = Low Risk Oriented to surroundings, Maintained a safe environment, Hourly rounding (assess needs \T\ fall precautionary measures) done. Abuse screen: Denies threats or abuse. Nutritional screening: No deficits noted. Tuberculosis screening: No symptoms or risk factors identified. Assessment: 00:53 Reassessment: Patient and/or family updated on plan of care and expected duration. Pain rg5 level reassessed. Patient is alert, oriented x 3, equal unlabored respirations, skin warm/dry/pink. Cardiovascular: Patient's skin is warm and dry. Rhythm is regular. Respiratory: Airway is patent Trachea midline Respiratory effort is even, unlabored, Breath sounds are clear bilaterally. GI: Abdomen is round obese. Vital Signs: 04/16 23:56 BP 131 / 74; Pulse 78; Resp 19; Temp 98.9; Pulse Ox 100% ; Weight 112.49 kg; Height 5 rg5 ft. 6 in. ; 04/17 00:56 BP 113 / 64; Pulse 80; Resp 18; Pulse Ox 100% ; rg5 04/16 23:56 Body Mass Index 40.03 (112.49 kg, 167.64 cm) rg5 ED Course: 04/16 23:49 Patient arrived in ED. gm2 23:51 Ellen Hall FNP-C is PHCP. kb 23:51 Thien Goodson MD is Attending Physician. kb 23:56 Arm band placed on. rg5 04/17 00:01 Kirit Bruner, CELIO is Primary Nurse. rg5 00:20 Chest Single View XRAY In Process Unspecified. EDMS 00:46 Triage completed. rg5 00:53 Bed in low position. Call light in reach. Side rails up X 1. Door closed. Noise rg5 minimized. 00:53 No provider procedures requiring assistance completed. Patient did not have IV access rg5 during this emergency room visit. 01:15 Provided Education on: post er care. rg5 Administered Medications: 00:14 Drug: Albuterol Inhalation 2.5 mg Inhalation once Route: Inhalation; rg5 00:14 Drug: Ipratropium Inhalation Aerosol 0.5 mg Inhalation once Route: Inhalation; rg5 00:14 Drug: Dexamethasone IM 10 mg IM once Route: IM; Site: right deltoid; rg5 01:15 Follow up: Response: No adverse reaction rg5 01:05 Drug: Amoxicillin-Clavulanate PO 875 mg PO once Route: PO; rg5 01:15 Follow up: Response: No adverse reaction rg5 01:05 Drug: AZITHromycin PO 500 mg PO once Route: PO; rg5 01:14 Follow up: Response: No adverse reaction rg5 Medication: 00:53 VIS not applicable for this client. rg5 Outcome: 01:02 Discharge ordered by MD. rodas 01:15 Discharged to home ambulatory, rg5 01:15 Condition: stable 01:15 Instructed on discharge instructions, follow up and referral plans. Demonstrated understanding of instructions, follow-up care, medications, Prescriptions given X 3, 01:16 Patient left the ED. rg5 Signatures: Dispatcher [employer] EDMS Ellen Hall, DYLLAN ALBERT-Nalini Chiang [facility] Kirit Bruner, RN RN rg5
[2025-04-17] MEDS ORDERED: AMOX/K CLAV 875 MG TAB ONE (01:10)
[2025-04-17] MEDS ORDERED: AZITHROMYCIN 250 MG TAB ONE (01:10)
[2025-04-17 01:26] VITALS: TEMP 98.9; O2SAT 100
[2025-04-17 01:28] VITALS: BP 113/64
--- NOTE | 2025-04-17 06:13 | RAD REPORT ---
CLINICAL HISTORY: Congestion, cough. COMPARISON: None. TECHNIQUE: XR CHEST 1 VIEW 04/16/2025 11:56 PM CDT FINDINGS: Cardiac silhouette is normal in size. There is a patchy right basilar consolidation. There is no pleu ral effusion. There is no pneumothorax. There are no acute osseous findings. IMPRESSION: Right basilar pneumonia. Electronically signed by: Mason England MD 04/17/2025 01:07 AM CDT RP Due to temporary technical issues with the PACS/SCADA Access reporting system, reports are being mahesh d by the in-house radiologist without review as a courtesy to ensure prompt reporting the interpreting radiologist is fully responsible for the content of the report. Transcribed Date/Time: 04/17/2025 6:13 AM
== END 2025-04-17 01:16 | disposition home or self-care (01) ==
LOC: ER 23:44
DX: J18.9 Pneumonia, unspecified organism (principal); Z11.52 Encounter for screening for COVID-19
CPT/HCPCS: 87070; 36415; 71045; 87426; J7613; J7644; J1100

== ENCOUNTER 2025-07-13 00:13 | Emergency (ER) | payer BC, OTHER ==
[2025-07-13] MEDS ORDERED: AMPICILLIN/SULBACTAM 3GM/VIAL ONE (01:15)
[2025-07-13] MEDS ORDERED: MORPHINE 4 MG/ML SYR ONE ×2 (01:15→02:30)
[2025-07-13] MEDS ORDERED: NA CHLORIDE 0.9% 1,000 ML ONE (01:16)
[2025-07-13] MEDS ORDERED: NA CHLORIDE 0.9% 100 ML ONE (01:16)
[2025-07-13 01:21] LABS: Absolute Lymphocytes (CBC) 1.9 K/uL (0.7-4.9); Hematocrit 38.9 % (36.0-45.0); Hemoglobin 13.3 g/dL (12.0-15.0); MCH 28.5 pg (27.0-35.0); MCHC 34.1 g/dL (32.0-36.0); MCV 83.6 fL (80-100); MPV 6.9 fL (7.6-11.3); Nucleated RBC Absolute Count 0.0 (0-0); Nucleated Red Blood Cells % 0.1 % (0-0); RBC Red Blood Cell Count 4.65 M/uL (3.86-4.86); White Blood Count 7.60 thou/uL (4.3-10.9)
[2025-07-13 01:30] LABS: PT Prothrombin Time 12.5 SECONDS (10-13.0); PTT, Activated Partial Thromb 32.6 SECONDS (27.2-37.4); Protime INR 1.11
[2025-07-13 01:41] LABS: ALT/SGPT 34.0 U/L (13-56); AST/SGOT 21.0 U/L (15-37); Albumin 3.8 g/dL (3.4-5.0); Albumin/Globulin Ratio 1.1 (1.1-1.8); Alkaline Phosphatase 85.0 U/L (45-117); Anion Gap 10.8 mEq/L (5.0-15.0); BUN Blood Urea Nitrogen 11.0 mg/dL (7-18); Globulin 3.4 g/dL (2.3-3.5); Glucose Level 104.0 mg/dL (74-106); Potassium 3.8 mEq/L (3.5-5.1)
[2025-07-13] MEDS ORDERED: KETOROLAC 30 MG/ML INJ ONE (02:29)
[2025-07-13] MEDS ORDERED: ONDANSETRON 4 MG/2 ML VIAL ONE (03:31)
--- NOTE | 2025-07-13 04:20 | EDPHYS ---
Physician Documentation [facility] Name: Erma Mejia Age: 45 yrs Sex: Female : 1980 Arrival Date: 07/13/2025 Time: 00:13 Bed 16 Private MD: ED Physician Ishan Hernandes HPI: 07/13 00:45 This 45 yrs old Female presents to ER via Unassigned with complaints of Toothache, Jaw cp Pain, Facial Swelling. 00:45 The patient presents with pain. The problem is located in the left lower jaw. Onset: cp The symptoms/episode began/occurred 1 week(s) ago. Duration: The symptoms are continuous, and are markedly worse than the original presentation, left lower jaw swelling since this morning. 00:45 Associated signs and symptoms: Pertinent positives: dysphagia, Pertinent negatives: cp fever. Severity of symptoms: in the emergency department the symptoms are unchanged, despite home interventions. Reports seeing dentist and being prescribed oral Clindamycin that she has been taking for past 5 days. 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 12 Historical: - Allergies: 00:16 No Known Allergies; ss12 - Home Meds: 02:46 metoprolol tartrate 100 mg Oral tablet 1 tab daily [Active]; amlodipine 5 mg tablet 1 ss12 tab daily [Active]; Ozempic 0.25 mg or 0.5 mg (2 mg/3 mL) subcutaneous Pen Injector 0.25 mg every week [Active]; Ativan 1 mg Oral tablet 1 tab as needed [Active]; cetirizine oral [Active]; Zofran Oral 4 mg as needed [Active]; Breo Ellipta inhalation daily [Active]; - PMHx: 00:16 Asthma; HTN; ss12 02:46 Rheumatoid arthritis; Hypertensive disorder; Postural Orthostatic Tachycardia Syndrome; ss12 - PSHx: 00:16 Cholecystectomy; ss12 - Immunization history:: Adult Immunizations up to date. - Infectious Disease History:: Denies. - Social history:: Smoking status: Patient/guardian denies using tobacco, the patient reports quitting approximately 2 years ago. ROS: 00:50 ENT: Positive for dental pain, left lower jaw pain and facial swelling, cp 00:50 Constitutional: Negative for body aches, chills, fever, poor PO intake, cp 00:50 Cardiovascular: Negative for chest pain, palpitations, 00:50 Respiratory: Negative for cough, shortness of breath, wheezing, 00:50 Abdomen/GI: Negative for abdominal pain, vomiting, diarrhea, constipation, 00:50 Neuro: Negative for altered mental status, dizziness, headache, numbness, weakness, 00:50 All other systems are negative, Exam: 01:00 Constitutional: The patient appears in no acute distress, alert, awake, non-toxic, well cp developed, well nourished, obese, uncomfortable, 01:00 Head/face: Noted is swelling, that is mild, of the left lower jaw, tenderness, that is cp severe, 01:00 Eyes: Periorbital structures: appear normal, Conjunctiva: normal, Sclera: no appreciated abnormality, Lids and lashes: appear normal, bilaterally, 01:00 ENT: External ear(s): are unremarkable, Ear canal(s): are normal, clear, TM's: dullness, bilaterally, Nose: is normal, Mouth: Lips: moist, Oral mucosa: moist, Posterior pharynx: Airway: no evidence of obstruction, patent, Dental exam: dental caries, that is severe, missing teeth, diffusely, pain, specifically in the left lower gumline, Voice: is normal, 01:00 Neck: ROM/movement: Meningeal signs: are not present, nuchal rigidity, is not appreciated, 01:00 Chest/axilla: Inspection: normal, 01:00 Cardiovascular: Rate: normal, Rhythm: regular, JVD: is not appreciated, 01:00 Respiratory: the patient does not display signs of respiratory distress, Respirations: normal, no use of accessory muscles, no retractions, labored breathing, is not present, Breath sounds: are clear throughout, no decreased breath sounds, no stridor, no wheezing, 01:00 Abdomen/GI: Exam negative for discomfort, distension, guarding, Inspection: abdomen appears normal, 01:00 Neuro: Orientation: to person, place \T\ time. Mentation: is normal, Motor: moves all fours, strength is normal, Sensation: is normal, 01:33 ECG was reviewed by the Attending Physician. cp Vital Signs: 00:16 Weight 104.33 kg; Height 5 ft. 6 in. ; ss12 01:37 BP 167 / 100; Pulse 60; Resp 16; Temp 98.6; ss12 01:53 BP 140 / 74; Pulse 65; Resp 16 S; Pulse Ox 99% on R/A; ss12 02:08 BP 146 / 87; Pulse 71; Resp 16 S; Pulse Ox 96% on R/A; ss12 03:22 BP 130 / 88; Pulse 64; Resp 16 S; Pulse Ox 98% on R/A; ss12 00:16 Body Mass Index 37.12 (104.33 kg, 167.64 cm) 12 MDM: 02:39 Medical Screening Exam initiated ms3 02:40 Transition of care: Care assumed from Edwin TORIBIO. ms3 04:07 Differential diagnosis: dental caries, gingivitis, dental abscess. Data reviewed: vital ms3 signs, nurses notes, lab test result(s), radiologic studies, and as a result, I will discharge patient. I considered the following discharge prescriptions or medication management in the emergency department Medications were administered in the Emergency Department. See MAR. Counseling: I had a detailed discussion with the patient and/or guardian regarding the historical points, exam findings, and any diagnostic results supporting the discharge/admit diagnosis, lab results, radiology results, the need for outpatient follow up, to return to the emergency department if symptoms worsen or persist or if there are any questions or concerns that arise at home. ED course: Discussed CT and lab findings with patient. Patient to follow-up with Dr. Maritza macias in 2 to 3 days. All questions were answered. Return precautions discussed include worsening symptoms, or any other concerns. Patient clindamycin dose increased to 450 mg 3 times daily. On reevaluation patient is alert and orient x 4, no apparent distress, nontoxic-appearing, speaking full sentences. No signs of [place] angina present at this time.. 07/13 00:42 Order name: Blood Culture Adult (2) cp 07/13 00:42 Order name: CBC with Diff; Complete Time: 01:59 cp 07/13 00:42 Order name: CMP; Complete Time: :59 cp 07/13 00:42 Order name: Lactate w/ 2H reflex if indic.; Complete Time: 01:59 cp 07/13 00:42 Order name: Protime (+inr); Complete Time: 01:59 cp 07/13 00:42 Order name: Ptt, Activated; Complete Time: 01:59 cp 07/13 00:42 Order name: Test, Serum; Complete Time: 01:59 cp 07/13 00:42 Order name: CT Soft Tissue Neck W/contr cp 07/13 00:42 Order name: Cardiac monitoring; Complete Time: 01:37 cp 07/13 00:42 Order name: EKG - Nurse/Tech; Complete Time: 01:32 cp 07/13 00:42 Order name: IV Saline Lock - Large Bore; Complete Time: 01:14 cp 07/13 00:42 Order name: Labs collected and sent; Complete Time: 01:14 cp 07/13 00:42 Order name: O2 Per Protocol; Complete Time: 01:37 cp / 00:42 Order name: O2 Sat Monitoring; Complete Time: :37 cp 07/13 00:42 Order name: Vital Signs; Complete Time: 01:37 cp EC:33 Rate is 59 beats/min. Rhythm is regular. VT interval is normal. QRS interval is normal. cp QT interval is normal. T waves are Inverted in leads III, aVR. Interpreted by me. Reviewed by me. Administered Medications: 01:15 Drug: NS 0.9% IV 1000 ml IV at 1 bolus Per protocol; to be given as a bolus over 60 ss12 minutes Route: IV; Rate: 1 bolus; Site: right antecubital; 04:41 Follow up: IV Status: Completed infusion; IV Intake: 1000ml 12 01:15 Drug: morphine IVP or IV 4 mg IVP once over 4 mins Route: IVP; Infused Over: 4 mins; ss12 Site: right antecubital; 02:43 Follow up: Response: No adverse reaction [facility] 01:15 Drug: Ampicillin-Sulbactam Sodium IVPB 3 grams IVPB once over 30 mins; (mix in 100 mL ss12 NS) Route: IVPB; Infused Over: 30 mins; Site: right antecubital; 02:44 Follow up: IV Status: Completed infusion; IV Intake: 100ml 12 02:20 Drug: morphine IVP or IV 4 mg IVP once over 4 mins Route: IVP; Infused Over: 4 mins; ss12 Site: right antecubital; 03:19 Follow up: Response: No adverse reaction; Pain is decreased 12 02:20 Drug: Ketorolac IVP 15 mg IVP once Route: IVP; Site: right antecubital; ss12 03:19 Follow up: Response: No adverse reaction; Pain is decreased ss12 Disposition: 04:08 Co-signature as Attending Physician, Ishan Hernandes DO. Chart complete. ms3 Disposition Summary: 07/13/25 04:20 Discharge Ordered Notes: Location: Home ms3 Condition: Stable ms3 Diagnosis - Dental Carries ms3 - Dental abscess ms3 - Essential (primary) hypertension ms3 Followup: ms3 - With: Christ Chatterjee DDS - When: 2 - 3 days - Reason: Recheck today's complaints Discharge Instructions: - Discharge Summary Sheet ms3 Forms: - Medication Reconciliation Form ms3 - Antibiotic Education ms3 - Prescription Opioid Use ms3 - Patient Portal Instructions ms3 - Leadership Thank You Letter ms3 Prescriptions: - Clindamycin HCl 150 mg Oral capsule - take 3 capsule ORAL route every 8 hours for 10 days; 90 capsule; Refills: 0, ms3 Product Selection Permitted - Tylenol-Codeine #3 300mg-30mg Oral tablet - take 1 tablet ORAL route every 4 hours As needed; 18 tablet; Refills: 0, ms3 Product Selection Permitted Signatures: Dispatcher [employer] EDMS Edwin Carrero PA PA cp Sims, Marcus, DO DO ms3 Sonia Scott, RN RN ss12 Corrections: (The following items were deleted from the chart) 00:43 00:43 Soft Tissue Neck W/Contr+CT.RAD.BRZ ordered. EDMS EDMS 01:12 00:42 Accucheck ordered. iain cp 04:08 02:17 I was immediately available on-site in the Emergency Department for consultation ms3 in the care of the patient. ms3
--- NOTE | 2025-07-13 04:20 | ER ---
Nurse's Notes [facility] Name: Erma Mejia Age: 45 yrs Sex: Female : 1980 Arrival Date: 07/13/2025 Time: 00:13 Bed 16 Private MD: Diagnosis: Dental Carries;Dental abscess;Essential (primary) hypertension Presentation: 07/13 01:37 Chief complaint: Patient states: TOOTH ACHE ON RIGHT SIDE OF THE MOUTH SINCE WEEK. SAW [facility] DENTIST AND WAS GIVEN ABX FOR ABSCESS ON JULY 08 FOR 5 DAYS. COMPLETED BUT NO RELIEF NOTED. PT REFERRED TO SOME SURGEON NEED TOOTH EXTRACTION BUT HAVEN'T SEEN THE SPECIALIST YET. Coronavirus screen: Client denies travel out of the [place] in the last 14 days. Ebola Screen: Patient negative for fever greater than or equal to 101.5 degrees Fahrenheit, and additional compatible Ebola Virus Disease symptoms Patient denies exposure to infectious person. Patient denies travel to an Ebola-affected area in the 21 days before illness onset. Initial Sepsis Screen: Does the patient meet any 2 criteria? HR > 90 bpm. Does the patient have a suspected source of infection?. Risk Assessment: Do you want to hurt yourself or someone else? Patient reports no desire to harm self or others. 01:37 Method Of Arrival: Ambulatory [facility] 01:37 Acuity: MYRA 3 [facility] 02:45 Onset of symptoms is unknown. [facility] Triage Assessment: 00:16 General: Appears uncomfortable, Behavior is calm, cooperative, quiet. Pain: Complains ss12 of pain in right side of the mouth Pain does not radiate. Pain currently is 9 out of 10 on a pain scale. Quality of pain is described as aching, Pain began. EENT: No deficits noted. Oral mucosa is moist. Poor dentition noted. 1st snd 2nd premolar tooth chipped off. looks black. Reports pain in right side of the mouth swelling noted. Neuro: No deficits noted. Level of Consciousness is awake, alert, obeys commands, Oriented to person, place, time, situation. Cardiovascular: No deficits noted. Denies chest pain, lightheadedness. Respiratory: No deficits noted. Airway is patent Respiratory effort is even, unlabored, Respiratory pattern is regular, symmetrical. GI: No deficits noted. No signs and/or symptoms were reported involving the gastrointestinal system. : No deficits noted. No signs and/or symptoms were reported regarding the genitourinary system. Derm: Skin is intact, Skin is dry, Skin is pink, warm \T\ dry. normal. Musculoskeletal: No deficits noted. No signs and/or symptoms reported regarding the musculoskeletal system. 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 [facility] Historical: - Allergies: 00:16 No Known Allergies; 12 - Home Meds: 02:46 metoprolol tartrate 100 mg Oral tablet 1 tab daily [Active]; amlodipine 5 mg tablet 1 ss12 tab daily [Active]; Ozempic 0.25 mg or 0.5 mg (2 mg/3 mL) subcutaneous Pen Injector 0.25 mg every week [Active]; Ativan 1 mg Oral tablet 1 tab as needed [Active]; cetirizine oral [Active]; Zofran Oral 4 mg as needed [Active]; Breo Ellipta inhalation daily [Active]; - PMHx: 00:16 Asthma; HTN; [facility] 02:46 Rheumatoid arthritis; Hypertensive disorder; Postural Orthostatic Tachycardia Syndrome; 12 - PSHx: 00:16 Cholecystectomy; 12 - Immunization history:: Adult Immunizations up to date. - Infectious Disease History:: Denies. - Social history:: Smoking status: Patient/guardian denies using tobacco, the patient reports quitting approximately 2 years ago. Screenin:09 [facility] ED Fall Risk Assessment (Adult) History of falling in the last 3 months, 12 including since admission No falls in past 3 months (0 pts) Confusion or Disorientation No (0 pts) Intoxicated or Sedated No (0 pts) Impaired Gait No (0 pts) Mobility Assist Device Used No (0 pt) Altered Elimination No (0 pt) Score/Fall Risk Level 0 - 2 = Low Risk Oriented to surroundings, Maintained a safe environment, Educated pt \T\ family on fall prevention, incl call for assistance when getting out of bed, Assessed \T\ reinforced patient's understanding of fall precautions. Abuse screen: Denies threats or abuse. Denies injuries from another. Nutritional screening: No deficits noted. Tuberculosis screening: No symptoms or risk factors identified. Assessment: 00:16 Reassessment: see triage assessment. [facility] 01:15 Reassessment: Patient appears in no apparent distress at this time. Patient and/or ss12 family updated on plan of care and expected duration. Pain level reassessed. Patient is alert, oriented x 3, equal unlabored respirations, skin warm/dry/pink. 02:08 Reassessment: Patient appears in no apparent distress at this time. Patient and/or ss12 family updated on plan of care and expected duration. Pain level reassessed. Patient is alert, oriented x 3, equal unlabored respirations, skin warm/dry/pink. Vital Signs: 00:16 Weight 104.33 kg; Height 5 ft. 6 in. ; ss12 01:37 BP 167 / 100; Pulse 60; Resp 16; Temp 98.6; ss12 01:53 BP 140 / 74; Pulse 65; Resp 16 S; Pulse Ox 99% on R/A; ss12 02:08 BP 146 / 87; Pulse 71; Resp 16 S; Pulse Ox 96% on R/A; ss12 03:22 BP 130 / 88; Pulse 64; Resp 16 S; Pulse Ox 98% on R/A; ss12 00:16 Body Mass Index 37.12 (104.33 kg, 167.64 cm) 12 ED Course: 00:15 Patient arrived in ED. jj6 00:18 Edwin Carrero PA is PHCP. cp 00:18 Ishan Hernandes DO is Attending Physician. cp 01:09 Sonia Scott, RN is Primary Nurse. ss12 01:14 Inserted saline lock: 20 gauge in right antecubital area, using aseptic technique. oe Blood collected. Flushed with 10 mL NS. 01:15 CBC with Diff Sent. oe 01:15 Blood Culture Adult (2) Sent. oe 01:15 CMP Sent. oe 01:15 Lactate w/ 2H reflex if indic. Sent. oe 01:15 Protime (+inr) Sent. oe 01:15 Ptt, Activated Sent. oe 02:08 CT Soft Tissue Neck W/contr In Process Unspecified. EDMS 02:10 No provider procedures requiring assistance completed. ss12 02:10 Arm band placed on right wrist. ss12 02:12 Triage completed. ss12 02:12 Provided Education on: plan of care discussed with pt/family. ss12 02:45 Patient has correct armband on for positive identification. ss12 04:19 Christ Chatterjee DDS is Referral Physician. ms3 04:41 IV discontinued, intact, bleeding controlled, No redness/swelling at site. Pressure ss12 dressing applied. Administered Medications: 01:15 Drug: NS 0.9% IV 1000 ml IV at 1 bolus Per protocol; to be given as a bolus over 60 ss12 minutes Route: IV; Rate: 1 bolus; Site: right antecubital; 04:41 Follow up: IV Status: Completed infusion; IV Intake: 1000ml ss12 01:15 Drug: morphine IVP or IV 4 mg IVP once over 4 mins Route: IVP; Infused Over: 4 mins; ss12 Site: right antecubital; 02:43 Follow up: Response: No adverse reaction ss12 01:15 Drug: Ampicillin-Sulbactam Sodium IVPB 3 grams IVPB once over 30 mins; (mix in 100 mL ss12 NS) Route: IVPB; Infused Over: 30 mins; Site: right antecubital; 02:44 Follow up: IV Status: Completed infusion; IV Intake: 100ml ss12 02:20 Drug: morphine IVP or IV 4 mg IVP once over 4 mins Route: IVP; Infused Over: 4 mins; ss12 Site: right antecubital; 03:19 Follow up: Response: No adverse reaction; Pain is decreased ss12 02:20 Drug: Ketorolac IVP 15 mg IVP once Route: IVP; Site: right antecubital; ss12 03:19 Follow up: Response: No adverse reaction; Pain is decreased ss12 Medication: 02:13 VIS not applicable for this client. ss12 Intake: 02:44 IV: 100ml; Total: 100ml. ss12 04:41 IV: 1000ml; Total: 1100ml. ss12 Outcome: 04:20 Discharge ordered by . ms3 04:41 Discharged to home ambulatory, ss12 04:41 Condition: stable 04:41 Discharge instructions given to patient, family, Instructed on discharge instructions, follow up and referral plans. Demonstrated understanding of instructions, follow-up care, Prescriptions given X 2, 04:43 Patient left the ED. ss12 Signatures: Dispatcher [employer] EDMS Edwin Carrero PA PA cp Espinosa, [place] oe Sims, Marcus, DO DO ms3 Radha Quinteros [id number] Sonia Scott RN RN ss12 Corrections: (The following items were deleted from the chart) 01:36 01:10 NS 0.9% IV 1000 ml IV at 1 bolus in right antecubital ss12 ss12
--- NOTE | 2025-07-13 05:39 | RAD REPORT ---
EXAM: CT neck with intravenous contrast CLINICAL DATA: 45 years Female Facial pain;Swelling. TECHNICAL DATA: Axial CT imaging of the soft tissues of the neck were performed following the administration of intra venous contrast. followed by sagittal and coronal reconstructed images. The CT study is performed according to ALARA (as low as reasonably achievable) or ALARA/IMAGE GENTLY, with automatic adjustment of mA and/or kV according to patient size. Performed on: 07/13/2025 at 2:07 AM Comparisons: CT neck report from 12/06/2024. The images were not available for review.. FINDINGS: The visualized portions of the brain and orbits are normal. The oral cavity, oropharynx and nasopharynx are normal. Some portions of the oral cavity and orophary nx are obscured by streak artifact related to the patient's dental hardware. The parapharyngeal fat planes are preserved. The hypopharynx is unremarkable. The epiglottis and aryepiglottic folds are normal. The vallecula and pyriform sinuses are grossly nor mal. The preepiglottic fat is preserved. The thyroid, cricoid and arytenoid cartilages are normal. The region of the false and true vocal cords is normal as is the anterior commissure. The parotid and submandibular glands are grossly within normal limits. No intrinsic mass lesions are seen. . The carotid sheaths are normal bilaterally. There is near complete opacification of the maxillary sinuses bilaterally. There is mild mucosal thic kening of the ethmoid air cells and sphenoid sinuses. The mastoid air cells and middle ear cavities are clear. No definite pathologically enlarged lymph nodes are identified The thyroid gland is normal in size and configuration. The thoracic inlet is normal. The superior mediastinum and visualized lung apices are normal. There are periapical lucencies involving the left mandibular canine and left mandibular posterior pre molar most consistent with periapical abscesses. There are also scattered dental caries. The visualized cervical vertebrae are unremarkable. No focal soft tissue abnormalities are seen. No focal soft tissue mass lesions or fluid collections a re identified. IMPRESSION: 1. No evidence of acute abnormality involving the soft tissues of the neck. 2. Periapical lucencies involving the left mandibular canine and left mandibular posterior premolar most consistent with periapical abscesses. There are also scattered dental caries. 3. Near complete opacification of the maxillary sinuses bilaterally and mild mucosal thickening of the ethmoid air cells and sphenoid sinuses. Electronically signed by: Kristie Zamora DO 07/13/2025 03:46 AM CDT RP Due to temporary technical issues with the PACS/[employer] reporting system, reports are being mahesh d by the in-house radiologist without review as a courtesy to ensure prompt reporting the interpreting radiologist is fully responsible for the content of the report. Transcribed Date/Time: 07/13/2025 5:39 AM
[2025-07-13 10:25] VITALS: TEMP 98.6
[2025-07-13 10:29] VITALS: BP 130/88; O2SAT 98
== END 2025-07-13 04:43 | disposition home or self-care (01) ==
LOC: ER 00:13
DX: K04.7 Periapical abscess without sinus (principal); K02.9 Dental caries, unspecified; I10 Essential (primary) hypertension
CPT/HCPCS: 96365; 96361; 87040 ×2; 85025; 36415; 84703; 85610; 83605; 85730; 80053; 70491; 96375; 99284; Q9967; J0295; J2405; J7030; 93005